=== PATIENT | female | born 1940 | race Caucasian/White ===

== ENCOUNTER → 2017-01-29 | Outpatient (CLI) | payer MEDICARE ==
[2017-01-29 11:40] LABS: Basophils # (A) 0.1 k/uL (0-0.2); Basophils % (A) 1 %; CH 32.4; CHCM 32.4; Eosinophils # (A) 0.2 k/uL (0-0.7); Eosinophils % (A) 3 %; HDW 2.48; HGB 15.2 gm/dL (11.4-16.0); Luc # (Auto) 0.16; Luc % (Auto) 3; Lymphocytes # (A) 2.2 k/uL (1.0-4.8); Lymphocytes % (A) 37 %; MCH 32.5 pg (25.0-35.0); MCHC 32.3 g/dL (31.0-37.0); MCV 100.5 fL (80.0-100.0); Macrocytosis Slight; Mean Platelet Volume 8.9; Monocytes # (A) 0.4 k/uL (0-1.0); Monocytes % (A) 7 %; Neutrophils % (A) 49 %; RBC 4.68 m/uL (3.80-5.40); RDW 14.6 % (11.5-15.5); WBC (Perox) 5.78
[2017-01-29 11:53] LABS: ALT 30 U/L (9-52); AST 25 U/L (14-36); Alkaline Phosphatase 68 U/L (38-126); Anion Gap 10 mmol/L; Blood Urea Nitrogen 22 mg/dL (7-17); Calcium 9.9 mg/dL (8.4-10.2); Carbon Dioxide 29 mmol/L (22-30); Chloride 102 mmol/L (98-107); Glucose 92 mg/dL (74-99); Non-African American GFR(MDRD) >60 (>60 ml/min/1.73 sqM); Sodium 141 mmol/L (137-145); Total Bilirubin 0.5 mg/dL (0.2-1.3); Total Protein 7.5 g/dL (6.3-8.2)
== END | disposition home or self-care (01) ==
LOC: LABWHC1 11:06
PROVIDERS: ATTEND Internal Medicine Geriatric Medicine
DX: I48.2 Chronic atrial fibrillation (principal); E05.80 Other thyrotoxicosis without thyrotoxic crisis or storm
CPT/HCPCS: 36415; 80053; 84439; 84443; 85025

== ENCOUNTER → 2017-08-28 | Day surgery (SDC) | payer MEDICARE ==
[2017-08-22 11:55] VITALS: BMI 25.6
[~2017-08-28] MED LIST: BALANCED SALT IRRIG SOLN COMB2 15 ML IRRIG.SOLN IRRIGATION ONE; CYCLOPENTOLATE 1% OPHTH SOLN 2 ML BTL OP ONE; EPINEPHrine (PF) 0.3 ML in BALANCED SALT IRRIG SOLN COMB2 500 ML IRRIGATION ONE; HYALURONATE SODIUM INTRAOCULAR 1 EACH SYRINGE (12MG/ML) INTRAOCULA ONE; LACTATED RINGERS 1,000 ML IV ONE; LACTATED RINGERS 1,000 ML IV SCH; LIDOCAINE 1% (PF) 10MG/ML VIAL MISCELLANE ONE; MIDAZOLAM 2 MG/2 ML VIAL ONE; MOXIFLOXACIN HCL 0.5% DROPS 3 ML BTL OP ONE; PHENYLEPHRINE 2.5% OPHTH DRP 2ML OP NR; TETRACAINE 0.5% OPHTH (PF) DROPS 4 ML BTL OP ONE; TIMOLOL 0.5% OPHTH DROPS 5 ML BTL OP ONE; fentaNYL (PF) 50 MCG/ML 2 ML AMP ONE
--- NOTE | 2017-08-28 11:31 | P.OP ---
Date of Procedure: 08/28/17 Preoperative Diagnosis: NS & PSC Postoperative Diagnosis: same Procedure(s) Performed: PIOL, OS Implants: PCB00 17.50 Anesthesia: MAC Surgeon: Hunter Maciel Estimated Blood Loss (ml): 0 Pathology: none sent Condition: stable Disposition: same day Indications for Procedure: blurry vision Operative Findings: No complications
[2017-08-28 11:47] VITALS: RESP 16
[2017-08-28 11:48] VITALS: BP 100/58; PULSE 63
--- NOTE | 2017-08-28 16:03 | OP ---
OPERATIVE REPORT DATE OF SERVICE: 08/28/17 THERAPY TECH:: PREOPERATIVE DIAGNOSIS:: Nuclear sclerosis. Posterior subcapsular cataract. POSTOPERATIVE DIAGNOSIS:: Nuclear sclerosis. Posterior subcapsular cataract. OPERATION:: Clear cornea phacoemulsification of cataract, left, OS eye. ESTIMATED BLOOD LOSS:: Zero. SPECIMEN TAKEN:: None. NARRATIVE:: After obtaining the appropriate consent, the patient was brought to the Operating Room where the patient was placed under cardiac monitoring and prepped and draped in the usual sterile manner. At the 5 o'clock position a 15 degree super sharp blade was used to create a paracentesis followed by instillation of 1% Xylocaine MPF 50:50 mix with BSS into the anterior chamber. This was followed by Amvisc to stabilize the anterior chamber. At the 3 o'clock position a self-sealing corneal flap incision was created using 2.8 mm jai keratome. A cystatome was used to initiate a continuous tear capsulorrhexis which was completed with the Utrata forceps. A Binkhorst cannula was used to hydrodissect the lens nucleus followed by hydrodelineation. Phacoemulsification of the lens was performed utilizing phacochop in 11.87 seconds at 10% power. The remaining cortical material was removed using the irrigation aspiration mode followed by additional 1% Xylocaine MPF into the anterior chamber followed by viscoelastic to stabilize the capsular bag. An WOOD PCB 00 17.5 diopter posterior chamber lens was placed into the capsular bag without difficulty. The remaining viscoelastic material was removed from the anterior chamber with the irrigation/aspiration. Balanced salt solution was used to normalize the intraocular pressure. The incision was checked for watertight integrity. The patient then received two drops of 0.5% timolol followed by two drops Vigamox, was lightly patched and shielded in the usual manner. There were no complications from the procedure. The patient tolerated the procedure well and was returned to recovery in good condition. MMODL / IJN: [id number] /
== END | disposition home or self-care (01) ==
LOC: OR 08:26
PROVIDERS: ATTEND Ophthalmology
DX: H25.12 Age-related nuclear cataract, left eye (principal); H25.042 Posterior subcapsular polar age-related cataract, left eye; H21.233 Degeneration of iris (pigmentary), bilateral; H40.003 Preglaucoma, unspecified, bilateral; H52.13 Myopia, bilateral; H52.4 Presbyopia; H00.026 Hordeolum internum left eye, unspecified eyelid; H00.023 Hordeolum internum right eye, unspecified eyelid; L65.9 Nonscarring hair loss, unspecified; I10 Essential (primary) hypertension; M81.0 Age-related osteoporosis without current pathological fracture; I48.91 Unspecified atrial fibrillation; I11.9 Hypertensive heart disease without heart failure; M19.90 Unspecified osteoarthritis, unspecified site; M54.9 Dorsalgia, unspecified; E07.9 Disorder of thyroid, unspecified; J30.2 Other seasonal allergic rhinitis; I25.10 Atherosclerotic heart disease of native coronary artery without angina pectoris; Z79.01 Long term (current) use of anticoagulants; Z79.891 Long term (current) use of opiate analgesic; Z79.899 Other long term (current) drug therapy; Z88.5 Allergy status to narcotic agent; Z88.8 Allergy status to other drugs, medicaments and biological substances
CPT/HCPCS: 66984; C1780; J2250; J0171; J3010; J2001

== ENCOUNTER → 2018-10-18 | Outpatient (CLI) | payer MEDICARE ==
--- NOTE | 2018-10-18 14:46 | MR ---
EXAMINATION TYPE: MR lumbar spine wo/w con DATE OF EXAM: 10/18/2018 COMPARISON: 01/08/2013 HISTORY: Back pain TECHNIQUE: Multiplanar, multisequence images of the lumbar spine were acquired utilizing 7 mL intravenous gadoli nium contrast. There is metal artifact from posterior fusion surgery from L4 to S1. Vertebra have normal alignment. There is no compression fracture. There is disc space narrowing throughout the lumbar spine. There is posterior disc herniation at L2-3 and L3-4 with endplate spur formation. There is developmentally la rge spinal canal and no significant spinal stenosis. There is mild thoracolumbar levoscoliosis. Contrast images show no pathologic enhancement. There are large sacral cysts noted at S2 and S3 level . There is no lumbar paraspinal mass. I see no focal bone destruction. IMPRESSION: Multilevel posterior fusion surgery. There is increased posterior disc herniation at L2-3 and L3-4 co mpared to old exam. No significant narrowing of the spinal canal. No fracture.
== END | disposition home or self-care (01) ==
LOC: RADMRIMAIN 09:09
PROVIDERS: ATTEND Internal Medicine Geriatric Medicine
DX: M51.26 Other intervertebral disc displacement, lumbar region (principal); Z98.1 Arthrodesis status
CPT/HCPCS: 72158; A9585

== ENCOUNTER 2018-10-22 10:19 | Emergency (ER) | payer MEDICARE ==
[2018-10-22 10:26] VITALS: TEMP 98.7
--- NOTE | 2018-10-22 11:05 | ED ---
General Adult HPI - General Chief complaint: Headache Stated complaint: Headache Time Seen by Provider: 10/22/18 10:28 Source: patient Mode of arrival: wheelchair Limitations: physical limitation - History of Present Illness Initial comments: Patient is a 78-year-old female with history of A. fib is presenting to the emergency Department with chief complaint of a headache. Patient reports the headache started yesterday morning near the right occipital region and has since progressed into a global headache. Patient reports the pain began yesterday morning after she woke up and it was gradual in onset. Patient reports the pain is an 8 and throbbing. Patient denies nausea, vomiting or for sensitivity. Patient does not have a history of headaches. Patient reports the headache is exacerbated with left and right rotation and flexion and extension. Patient reports of range of motion of the neck due to the pain. Patient denies one- sided weakness, poor seizures, blurry vision or gait instability. Patient reports a left hand tremor but states that is her baseline. Patient does take warfarin daily. Patient denies any trauma to the head. Patient denies taking any medication to alleviate the symptoms. - Related Data Home Medications Medication Instructions Recorded Confirmed Baclofen [Lioresal] 10 mg PO TID 08/22/17 10/22/18 Gabapentin [Neurontin] 300 mg PO BID 08/22/17 10/22/18 Lisinopril [Zestril] 10 mg PO DAILY 08/22/17 10/22/18 Methimazole [Tapazole] 5 mg PO DAILY 08/22/17 10/22/18 Oxybutynin Chloride [Ditropan] 5 mg PO DAILY 08/22/17 10/22/18 Warfarin [Coumadin] 2.5 mg PO SUTUWETHFRSA 08/22/17 10/22/18 hydrOXYzine HCL [Atarax] 25 mg PO BID PRN 08/22/17 10/22/18 Atorvastatin [Lipitor] 20 mg PO DAILY 10/22/18 10/22/18 Buprenorphine [Butrans 5 MCG/HR] 1 patch TRANSDERM WE 10/22/18 10/22/18 Calcium Carbonate/Vitamin D3 1 tab PO DAILY 10/22/18 10/22/18 [Calcium 500-Vit D3 200 Tablet] DULoxetine HCL [Cymbalta] 60 mg PO DAILY 10/22/18 10/22/18 Glucosam/Mat-Msm1/C/Nicko/Bosw 1 tab PO BID 10/22/18 10/22/18 [Glucosamine-Chondroitin Tablet] Metoprolol Tartrate [Lopressor] 25 mg PO TID 10/22/18 10/22/18 Warfarin [Coumadin] 3.75 mg PO MO 10/22/18 10/22/18 metroNIDAZOLE [Flagyl] 500 mg PO Q8H 10/22/18 10/22/18 traMADol HCL [Ultram] 100 mg PO BID PRN 10/22/18 10/22/18 Allergies Allergy/AdvReac Type Severity Reaction Status Date / Time No Known Allergies Allergy Verified 10/22/18 11:03 Review of Systems ROS Statement: Those systems with pertinent positive or pertinent negative responses have been documented in the HPI. ROS Other: All systems not noted in ROS Statement are negative. Past Medical History Past Medical History: Atrial Fibrillation, GI Bleed, Hypertension, Osteoarthritis (OA) Additional Past Medical History / Comment(s): VARICOSE VEINS, BACK PAIN -USES CANE PRN., HX OF GI BLEED FROM COLITIS (HOSPITALIZED IN [place] 02/2017)., HX OF FX RIGHT ANKLE AND LEFT FOOT., LEFT CATARACT. History of Any Multi-Drug Resistant Organisms: None Reported Past Surgical History: Back Surgery, Orthopedic Surgery Additional Past Surgical History / Comment(s): RIGHT ANKLE SURGERY (HARDWARE REMOVED), RIGHT CATARACT Past Anesthesia/Blood Transfusion Reactions: No Reported Reaction Past Psychological History: No Psychological Hx Reported Smoking Status: Former smoker Past Alcohol Use History: Occasional Past Drug Use History: None Reported - Past Family History Mother Family Medical History: Cancer Additional Family Medical History / Comment(s): COLON CANCER Sister(s) Family Medical History: Cancer Additional Family Medical History / Comment(s): BREAST CANCER General Exam Limitations: no limitations General appearance: alert, in no apparent distress Head exam: Present: atraumatic, normocephalic, normal inspection Eye exam: Present: normal appearance, PERRL, EOMI. Absent: conjunctival injection, periorbital tenderness Pupils: Present: normal accommodation ENT exam: Present: normal exam, normal oropharynx, mucous membranes moist, TM's normal bilaterally, normal external ear exam Neck exam: Present: normal inspection, tenderness (Right-sided neck tenderness). Absent: full ROM (Limited range of motion due to pain) Respiratory exam: Present: normal lung sounds bilaterally. Absent: respiratory distress, wheezes Cardiovascular Exam: Present: regular rate, normal rhythm, normal heart sounds GI/Abdominal exam: Present: soft, normal bowel sounds. Absent: tenderness, guarding, rebound Extremities exam: Present: normal inspection, full ROM, normal capillary refill Back exam: Present: normal inspection, full ROM. Absent: CVA tenderness (R), CVA tenderness (L) Neurological exam: Present: alert, oriented X3, normal gait, other (Patient neurovascular intact). Absent: motor sensory deficit Psychiatric exam: Present: normal affect, normal mood Skin exam: Present: warm, intact, normal color Course Vital Signs 10/22/18 10/22/18 10:23 13:02 Temperature 98.7 F Pulse Rate 75 Respiratory 18 18 Rate Blood Pressure 135/61 Blood Pressure 128/76 [Right Arm] O2 Sat by Pulse 96 Oximetry Medical Decision Making - Medical Decision Making Patient is a 70-year-old female presents emergency Department with a chief complaint of a headache. Patient is neurovascularly intact. has no blurry vision, one-sided weakness or paresthesias. INR is at therapeutic range of 2.3. Patient is on Coumadin. CT of brain and C-spine is negative for acute fractures, disengages, hemorrhage, space at about lesions or midline shift. Patient also appears to have pain with palpation along the neck that appears to be exacerbated with specific positions. The some suspecting the patient to have a musculoskeletal pain. Negative meningismus or fever. Patient is already on multiple narcotic medications due to previous back surgeries. Patient sees a pain physician. The daughter spoke with the patient's pain management physician who will see the patient tomorrow morning. Patient given morphine, Benadryl, Reglan and lorazepam. Daughter and patient advised to follow-up with pain physician. Strict return parameters were thoroughly discussed patient was understanding and agreeable. Case discussed physician. - Lab Data Result diagrams: 10/22/18 11:26 10/22/18 11:26 Lab Results 10/22/18 10/22/18 10/22/18 Range/Units 11:26 11:26 11:26 WBC 9.4 (3.8-10.6) k/uL RBC 4.24 (3.80-5.40) m/uL Hgb 13.7 (11.4-16.0) gm/dL Hct 40.3 (34.0-46.0) % MCV 95.0 (80.0-100.0) fL MCH 32.2 (25.0-35.0) pg MCHC 33.9 (31.0-37.0) g/dL RDW 15.4 (11.5-15.5) % Plt Count 179 (150-450) k/uL Neutrophils % 73 % Lymphocytes % 15 % Monocytes % 6 % Eosinophils % 5 % Basophils % 1 % Neutrophils # 6.9 (1.3-7.7) k/uL Lymphocytes # 1.4 (1.0-4.8) k/uL Monocytes # 0.5 (0-1.0) k/uL Eosinophils # 0.5 (0-0.7) k/uL Basophils # 0.0 (0-0.2) k/uL PT 21.9 H (9.0-12.0) sec INR 2.3 H (<1.2) APTT 35.1 H (22.0-30.0) sec Sodium 139 (137-145) mmol/L Potassium 3.9 (3.5-5.1) mmol/L Chloride 99 (98-107) mmol/L Carbon Dioxide 32 H (22-30) mmol/L Anion Gap 8 mmol/L BUN 20 H (7-17) mg/dL Creatinine 0.83 (0.52-1.04) mg/dL Est GFR (CKD-EPI)AfAm 79 (>60 ml/min/1.73 sqM) Est GFR (CKD-EPI)NonAf 68 (>60 ml/min/1.73 sqM) Glucose 86 (74-99) mg/dL Calcium 9.0 (8.4-10.2) mg/dL Total Bilirubin 0.8 (0.2-1.3) mg/dL AST 21 (14-36) U/L ALT 20 (9-52) U/L Alkaline Phosphatase 87 (38-126) U/L Total Protein 7.2 (6.3-8.2) g/dL Albumin 4.1 (3.5-5.0) g/dL Disposition Clinical Impression: Headache Disposition: HOME SELF-CARE Condition: Stable Instructions (If sedation given, give patient instructions): Acute Headache (ED) Additional Instructions: Please follow up with a pain physician. Return to emergency department if symptoms worsen. Is patient prescribed a controlled substance at d/c from ED?: No Referrals: Horacio Miller MD [Primary Care Provider] - 1-2 days Time of Disposition: 13:43
[2018-10-22] MEDS ORDERED: MORPHINE SULFATE 4 MG/ML SYRINGE IVP STA (11:33)
[2018-10-22 11:36] LABS: Basophils % (A) 1 %; Eosinophils # (A) 0.5 k/uL (0-0.7); Eosinophils % (A) 5 %; HCT 40.3 % (34.0-46.0); HGB 13.7 gm/dL (11.4-16.0); Lymphocytes # (A) 1.4 k/uL (1.0-4.8); Lymphocytes % (A) 15 %; MCH 32.2 pg (25.0-35.0); MCHC 33.9 g/dL (31.0-37.0); Mean Platelet Volume 8.3; Monocytes # (A) 0.5 k/uL (0-1.0); Monocytes % (A) 6 %; Neutrophils # (A) 6.9 k/uL (1.3-7.7); Neutrophils % (A) 73 %; Platelet Count 179 k/uL (150-450); RBC 4.24 m/uL (3.80-5.40); RDW 15.4 % (11.5-15.5); WBC 9.4 k/uL (3.8-10.6)
[2018-10-22 11:44] LABS: INR 2.3 (<1.2); Partial Thromboplastin Time 35.1 sec (22.0-30.0); Prothrombin Time 21.9 sec (9.0-12.0)
[2018-10-22 11:45] LABS: Albumin 4.1 g/dL (3.5-5.0); Potassium 3.9 mmol/L (3.5-5.1); Total Bilirubin 0.8 mg/dL (0.2-1.3); Total Protein 7.2 g/dL (6.3-8.2)
--- NOTE | 2018-10-22 12:05 | CT ---
EXAMINATION TYPE: CT brain shala cedeno DATE OF EXAM: 10/22/2018 COMPARISON: 03/31/2010 HISTORY: head and neck pain x2 days CT DLP: 1111.[address] of the brain was performed. The ventricles, basal cisterns and sulci overlying the cerebral convexities demonstrate mild enlargem ent. There is no evidence for intracranial hemorrhage or sulcal effacement. There is decreased attenuatio n about the periventricular white matter and deep white matter of both cerebral hemispheres, compatib le with chronic small vessel ischemia. No mass effects are seen. If symptoms persist consider MRI. Osseous calvarium is intact. IMPRESSION: 1. Age related atrophic and chronic small vessel ischemic change without acute intracranial process seen at this time. CT Cervical Spine: Unenhanced CT of the cervical spine was performed with bone and soft tissue window settings submitted . Coronal and sagittal reconstruction is obtained. There is normal alignment and prevertebral soft tissues. No evidence for acute cervical fracture . Scattered degenerative disc disease and spondylosis. Biapical scarring. IMPRESSION: 1. No evidence for acute fracture or subluxation of the cervical spine.
[2018-10-22] MEDS ORDERED: METOCLOPRAMIDE 5 MG/ML 2 ML VIAL IVP STA (12:39)
[2018-10-22] MEDS ORDERED: diphenhydrAMINE 50 MG/ML 1 ML VIAL IVP STA (12:39)
[2018-10-22] MEDS ORDERED: LORazepam 2 MG/ML INJ IV STA (13:42)
[2018-10-22 14:04] VITALS: BP 118/71; PULSE 68; RESP 16
== END 2018-10-22 14:09 | disposition home or self-care (01) ==
LOC: EC 10:19
DX: R51 Headache (principal); I48.91 Unspecified atrial fibrillation; I10 Essential (primary) hypertension; Z87.891 Personal history of nicotine dependence; Z98.890 Other specified postprocedural states; Z79.01 Long term (current) use of anticoagulants; Z79.891 Long term (current) use of opiate analgesic; Z79.899 Other long term (current) drug therapy
CPT/HCPCS: 36415; 80053; 85025; 85610; 85730; 72125; 70450; 99284; 96374; 96375 ×3; J2060; J2270; J1200; J2765

== ENCOUNTER 2018-10-25 07:21 | Emergency (ER) | payer MEDICARE ==
[2018-10-25 07:26] VITALS: TEMP 97.9
[2018-10-25] MEDS ORDERED: DIAZEPAM 5 MG/ML 2 ML INJ IVP STA (07:49)
[2018-10-25] MEDS ORDERED: KETOROLAC 60 MG/2 ML VIAL IVP STA (07:49)
--- NOTE | 2018-10-25 07:53 | ED ---
General Adult HPI - General Chief complaint: Headache Stated complaint: headache recheck Time Seen by Provider: 10/25/18 07:25 Source: patient, RN notes reviewed Mode of arrival: wheelchair Limitations: no limitations - History of Present Illness Initial comments: This is a 78-year-old female who presents emergency Department with a past medical history significant for migraine headaches. Patient states she started having headache on Saturday morning it started in her neck on the right side and has progressed to both sides of her neck and down radiates up into her head. Patient states she came to the ER 2 nights ago[address] It is [address] of her head and neck did not find anything and her doctor prescribed her some pain medications which has decreased the headache but the headache has not gone. Patient states the pain increases anytime she looks up and down or to the right or left. Patient denies any numbness or weakness. Patient denies any fever chills. Patient denies any slurred speech or visual disturbance. Patient states the greatest amount of pain is in her neck particularly trapezius muscles and sternocleidomastoid muscle. Patient denies any injury. Patient denies any palpitations or chest pain. Patient denies any shortness of breath. Patient denies any abdominal pain patient denies nausea vomiting diarrhea. - Related Data Home Medications Medication Instructions Recorded Confirmed Baclofen [Lioresal] 10 mg PO TID 08/22/17 10/25/18 Gabapentin [Neurontin] 300 mg PO BID 08/22/17 10/25/18 Lisinopril [Zestril] 10 mg PO DAILY 08/22/17 10/25/18 Methimazole [Tapazole] 5 mg PO DAILY 08/22/17 10/25/18 Oxybutynin Chloride [Ditropan] 5 mg PO DAILY 08/22/17 10/25/18 Warfarin [Coumadin] 2.5 mg PO SUTUWETHFRSA 08/22/17 10/25/18 hydrOXYzine HCL [Atarax] 25 mg PO BID PRN 08/22/17 10/25/18 Atorvastatin [Lipitor] 20 mg PO DAILY 10/22/18 10/25/18 Buprenorphine [Butrans 5 MCG/HR] 1 patch TRANSDERM WE 10/22/18 10/25/18 Calcium Carbonate/Vitamin D3 1 tab PO DAILY 10/22/18 10/25/18 [Calcium 500-Vit D3 200 Tablet] DULoxetine HCL [Cymbalta] 60 mg PO DAILY 10/22/18 10/25/18 Glucosam/Mat-Msm1/C/Nicko/Bosw 1 tab PO BID 10/22/18 10/25/18 [Glucosamine-Chondroitin Tablet] Metoprolol Tartrate [Lopressor] 25 mg PO TID 10/22/18 10/25/18 Warfarin [Coumadin] 3.75 mg PO MO 10/22/18 10/25/18 traMADol HCL [Ultram] 100 mg PO BID PRN 10/22/18 10/25/18 LORazepam [Ativan] 1 mg PO BID 10/25/18 10/25/18 oxyCODONE ER [OxyCONTIN] 20 mg PO Q12HR 10/25/18 10/25/18 Previous Rx's Medication Instructions Recorded Diazepam [Valium] 5 mg PO Q6H #10 tab 10/25/18 Allergies Allergy/AdvReac Type Severity Reaction Status Date / Time No Known Allergies Allergy Verified 10/25/18 08:02 Review of Systems ROS Statement: Those systems with pertinent positive or pertinent negative responses have been documented in the HPI. ROS Other: All systems not noted in ROS Statement are negative. Past Medical History Past Medical History: Atrial Fibrillation, GI Bleed, Hypertension, Osteoarthritis (OA) Additional Past Medical History / Comment(s): VARICOSE VEINS, BACK PAIN -USES CANE PRN., HX OF GI BLEED FROM COLITIS (HOSPITALIZED IN [place] 02/2017)., HX OF FX RIGHT ANKLE AND LEFT FOOT., LEFT CATARACT. History of Any Multi-Drug Resistant Organisms: None Reported Past Surgical History: Back Surgery, Orthopedic Surgery Additional Past Surgical History / Comment(s): RIGHT ANKLE SURGERY (HARDWARE REMOVED), RIGHT CATARACT Past Anesthesia/Blood Transfusion Reactions: No Reported Reaction Past Psychological History: No Psychological Hx Reported Smoking Status: Former smoker Past Alcohol Use History: Occasional Past Drug Use History: None Reported - Past Family History Mother Family Medical History: Cancer Additional Family Medical History / Comment(s): COLON CANCER Sister(s) Family Medical History: Cancer Additional Family Medical History / Comment(s): BREAST CANCER General Exam - General Exam Comments Initial Comments: GENERAL: Patient is well-developed and well-nourished. Patient is nontoxic and well- hydrated and is in mild distress. ENT: Neck is soft and supple. No significant lymphadenopathy is noted. Oropharynx is clear. Moist mucous membranes. Patient is not able to go through full range of motion of the neck secondary to pain. EYES: The sclera were anicteric and conjunctiva were pink and moist. Extraocular movements were intact and pupils were equal round and reactive to light. Eyelids were unremarkable. PULMONARY: Unlabored respirations. Good breath sounds bilaterally. No audible rales rhonchi or wheezing was noted. CARDIOVASCULAR: There is a regular rate and rhythm without any murmurs gallops or rubs. ABDOMEN: Soft and nontender with normal bowel sounds. SKIN: Skin is clear with no lesions or rashes and otherwise unremarkable. NEUROLOGIC: Patient is alert and oriented x3. Cranial nerves II through XII are grossly intact. Motor and sensory are also intact. Normal speech, volume and content. Symmetrical smile. MUSCULOSKELETAL: Normal extremities with adequate strength and full range of motion. Patient has tenderness in the trapezius muscles bilaterally. Patient has no tenderness on palpating the temporal region of scalp. LYMPHATICS: No significant lymphadenopathy is noted PSYCHIATRIC: Normal psychiatric evaluation. Limitations: no limitations Course Vital Signs 10/25/18 10/25/18 07:24 09:40 Temperature 97.9 F Pulse Rate 85 60 Respiratory 18 14 Rate Blood Pressure 133/80 103/67 O2 Sat by Pulse 96 96 Oximetry Medical Decision Making - Medical Decision Making Patient received Toradol and Valium and felt considerably better. Patient states she hasn't felt as good since it all began. Patient wants to be discharged home to follow-up with her primary medical care doctor. - Lab Data Result diagrams: 10/25/18 08:05 10/25/18 08:05 Lab Results 10/25/18 10/25/18 10/25/18 Range/Units 08:05 08:05 08:05 WBC 7.2 (3.8-10.6) k/uL RBC 4.27 (3.80-5.40) m/uL Hgb 13.4 (11.4-16.0) gm/dL Hct 41.2 (34.0-46.0) % MCV 96.3 (80.0-100.0) fL MCH 31.3 (25.0-35.0) pg MCHC 32.5 (31.0-37.0) g/dL RDW 13.7 (11.5-15.5) % Plt Count 199 (150-450) k/uL Neutrophils % 70 % Lymphocytes % 17 % Monocytes % 6 % Eosinophils % 6 % Basophils % 1 % Neutrophils # 5.0 (1.3-7.7) k/uL Lymphocytes # 1.2 (1.0-4.8) k/uL Monocytes # 0.4 (0-1.0) k/uL Eosinophils # 0.4 (0-0.7) k/uL Basophils # 0.1 (0-0.2) k/uL ESR 48 H (0-20) mm/hr Sodium 137 (137-145) mmol/L Potassium 3.9 (3.5-5.1) mmol/L Chloride 97 L (98-107) mmol/L Carbon Dioxide 30 (22-30) mmol/L Anion Gap 10 mmol/L BUN 19 H (7-17) mg/dL Creatinine 0.88 (0.52-1.04) mg/dL Est GFR (CKD-EPI)AfAm 73 (>60 ml/min/1.73 sqM) Est GFR (CKD-EPI)NonAf 64 (>60 ml/min/1.73 sqM) Glucose 99 (74-99) mg/dL Calcium 9.1 (8.4-10.2) mg/dL Magnesium 2.0 (1.6-2.3) mg/dL Total Bilirubin 0.7 (0.2-1.3) mg/dL AST 19 (14-36) U/L ALT 17 (9-52) U/L Alkaline Phosphatase 82 (38-126) U/L Creatine Kinase 44 (30-135) U/L Total Protein 7.2 (6.3-8.2) g/dL Albumin 4.0 (3.5-5.0) g/dL Disposition Clinical Impression: Cervical muscle strain Disposition: HOME SELF-CARE Condition: Good Prescriptions: Diazepam [Valium] 5 mg PO Q6H #10 tab Is patient prescribed a controlled substance at d/c from ED?: Yes When asked, does pt state using other controlled substances?: Yes If prescribed controlled substance>3 days was MAPS reviewed?: Prescribed <3 Days Referrals: Horacio Miller MD [Primary Care Provider] - 1-2 days Time of Disposition: 09:51
[2018-10-25 08:23] LABS: Basophils # (A) 0.1 k/uL (0-0.2); Basophils % (A) 1 %; Eosinophils # (A) 0.4 k/uL (0-0.7); Eosinophils % (A) 6 %; HCT 41.2 % (34.0-46.0); HGB 13.4 gm/dL (11.4-16.0); Lymphocytes # (A) 1.2 k/uL (1.0-4.8); Lymphocytes % (A) 17 %; MCH 31.3 pg (25.0-35.0); MCHC 32.5 g/dL (31.0-37.0); MCV 96.3 fL (80.0-100.0); Mean Platelet Volume 8.1; Monocytes # (A) 0.4 k/uL (0-1.0); Monocytes % (A) 6 %; Neutrophils % (A) 70 %; Platelet Count 199 k/uL (150-450); RBC 4.27 m/uL (3.80-5.40); RDW 13.7 % (11.5-15.5); WBC 7.2 k/uL (3.8-10.6)
[2018-10-25 08:42] LABS: Calcium 9.1 mg/dL (8.4-10.2); Potassium 3.9 mmol/L (3.5-5.1); Total Bilirubin 0.7 mg/dL (0.2-1.3); Total Protein 7.2 g/dL (6.3-8.2)
[2018-10-25 09:14] LABS: Erythrocyte Sedimentation Rate 48 mm/hr (0-20)
[2018-10-25 09:43] VITALS: RESP 14
[2018-10-25 10:03] VITALS: BP 113/53; PULSE 72
== END 2018-10-25 10:01 | disposition home or self-care (01) ==
LOC: EC 07:21
DX: S16.1XXA Strain of muscle, fascia and tendon at neck level, initial encounter (principal); R51 Headache; I48.91 Unspecified atrial fibrillation; I10 Essential (primary) hypertension; Z87.891 Personal history of nicotine dependence; Z79.01 Long term (current) use of anticoagulants; Z79.899 Other long term (current) drug therapy; Z87.39 Personal history of other diseases of the musculoskeletal system and connective tissue; Z86.69 Personal history of other diseases of the nervous system and sense organs; X58.XXXA Exposure to other specified factors, initial encounter
CPT/HCPCS: 36415; 80053; 85652; 82550; 83735; 85025; 99283; 96374; 96375; J3360; J1885

== ENCOUNTER 2020-10-11 06:22 | Day surgery (SDC) | payer MEDICARE ==
[~2020-10-11 06:22] MED LIST changes: +ALPRAZolam 0.25 MG TAB PO PRN; +ALPRAZolam 0.5 MG TAB PO PRN; +ASPIRIN 325 MG TAB PO STA; -BALANCED SALT IRRIG SOLN COMB2 15 ML IRRIG.SOLN IRRIGATION ONE; -CYCLOPENTOLATE 1% OPHTH SOLN 2 ML BTL OP ONE; -EPINEPHrine (PF) 0.3 ML in BALANCED SALT IRRIG SOLN COMB2 500 ML IRRIGATION ONE; +HEPARIN SODIUM,PORCINE 10,000 UNIT in SODIUM CHLORIDE 0.9% 1,000 ML IRRIGATION PRN; +HEPARIN SODIUM,PORCINE 2,500 UNIT in SODIUM CHLORIDE 0.9% 250 ML IRRIGATION PRN; -HYALURONATE SODIUM INTRAOCULAR 1 EACH SYRINGE (12MG/ML) INTRAOCULA ONE; -LACTATED RINGERS 1,000 ML IV ONE; -LACTATED RINGERS 1,000 ML IV SCH; -LIDOCAINE 1% (PF) 10MG/ML VIAL MISCELLANE ONE; -MIDAZOLAM 2 MG/2 ML VIAL ONE; -MOXIFLOXACIN HCL 0.5% DROPS 3 ML BTL OP ONE; +NITROGLYCERIN SL TABS 0.4 MG TAB SUBLINGUAL PRN; -PHENYLEPHRINE 2.5% OPHTH DRP 2ML OP NR; +SODIUM CHLORIDE 0.9% 1,000 ML in EMPTY BAG 1 BAG IV ONE; -TETRACAINE 0.5% OPHTH (PF) DROPS 4 ML BTL OP ONE; -TIMOLOL 0.5% OPHTH DROPS 5 ML BTL OP ONE; -fentaNYL (PF) 50 MCG/ML 2 ML AMP ONE
[2020-10-11] MEDS ORDERED: HEPARIN SODIUM 1,000 UN/ML (10ML VL) ONE (07:20)
[2020-10-11] MEDS ORDERED: VERAPAMIL 2.5 MG/ML 2 ML AMP ONE (07:20)
[2020-10-11] MEDS ORDERED: LIDOCAINE 1% INJ 10MG/ML (20 ML MDV) ONE (07:20)
[2020-10-11 07:21] LABS: Basophils # (A) 0.1 k/uL (0-0.2); Basophils % (A) 1 %; Eosinophils # (A) 0.4 k/uL (0-0.7); Eosinophils % (A) 6 %; HCT 41.1 % (34.0-46.0); HGB 13.3 gm/dL (11.4-16.0); Lymphocytes # (A) 1.8 k/uL (1.0-4.8); Lymphocytes % (A) 25 %; MCH 32.1 pg (25.0-35.0); MCHC 32.3 g/dL (31.0-37.0); MCV 99.3 fL (80.0-100.0); Monocytes # (A) 0.4 k/uL (0-1.0); Monocytes % (A) 6 %; Neutrophils # (A) 4.2 k/uL (1.3-7.7); Neutrophils % (A) 59 %; Platelet Count 229 k/uL (150-450); RBC 4.14 m/uL (3.80-5.40); RDW 13.5 % (11.5-15.5); WBC 7.1 k/uL (3.8-10.6)
[2020-10-11 07:26] VITALS: RESP 16
[2020-10-11 07:27] LABS: INR 1.2 (<1.2); Prothrombin Time 12.5 sec (9.0-12.0)
[2020-10-11 07:39] LABS: Calcium 9.4 mg/dL (8.4-10.2)
[2020-10-11 07:45] LABS: Potassium 5.1 mmol/L (3.5-5.1)
[2020-10-11] MEDS ORDERED: MIDAZOLAM 2 MG/2 ML VIAL IV ONE (08:02)
[2020-10-11] MEDS ORDERED: LIDOCAINE 1% INJ 10MG/ML (20 ML MDV) SQ ONE (08:05)
[2020-10-11] MEDS: VERAPAMIL SYRINGE (5 MG/10 ML) INTRAARTER ONE ×2 (08:07→08:33)
[2020-10-11] MEDS ORDERED: CLOPIDOGREL 75 MG TAB ONE (08:28)
[2020-10-11] MEDS ORDERED: niCARdipine 25 MG/10 ML VIAL ONE (08:30)
[2020-10-11] MEDS ORDERED: CLOPIDOGREL 75 MG TAB PO ONE (08:31)
[2020-10-11] MEDS ORDERED: IOPAMIDOL-370 125ML BTL INJ ONE (08:33)
[2020-10-11] MEDS ORDERED: NITROGLYCERIN 1000MCG/10ML SYRINGE INTRACORON ONE (08:34)
[2020-10-11] MEDS ORDERED: traMADol 50 MG TAB PO PRN (08:41)
[2020-10-11] MEDS ORDERED: hydrOXYzine HCL 25 MG TAB PO PRN (08:41)
[2020-10-11] MEDS ORDERED: ATROPINE SULFATE 0.1 MG/ML 10ML SYRINGE IV PRN (08:42)
[2020-10-11] MEDS ORDERED: ZOLPIDEM 5 MG TAB PO PRN (08:42)
[2020-10-11] MEDS ORDERED: NITROGLYCERIN SL TABS 0.4 MG TAB SUBLINGUAL PRN (08:42)
[2020-10-11] MEDS ORDERED: MAG HYDROX/AL HYDROX/SIMETH 30 ML CUP PO PRN (08:42)
[2020-10-11] MEDS ORDERED: RX INFO: IV CONTRAST WAS GIVEN 1 EACH MISC MISCELLANE PRN (08:42)
[2020-10-11] MEDS ORDERED: SODIUM CHLORIDE 0.9% 1,000 ML IV SCH (08:45)
[2020-10-11] MEDS ORDERED: NON FORMULARY DRUG (Glucosam/Chon-Msm1/C/Mang/Bosw [Glucosamine-Chondroitin Tablet] 1 EACH PO SCH (09:00)
--- NOTE | 2020-10-11 09:26 | LTR ---
DATE OF SERVICE: 10/11/[address] Miller: Ms. Tiffanie Lee was seen in the office today for further evaluation before noncardiac surgery. She was going to undergo a pelvic surgery. She underwent myocardial perfusion imaging stress test and that came into be abnormal with reversibility. Because of that, a heart catheterization was advised. The heart catheterization revealed severe single-vessel coronary artery disease involving the mid RCA, which I did perform successful stenting on it with an excellent angiographic results and without any complication. I want to thank you for allowing me to participate in her care and please do not hesitate to call if you have any questions or concerns. Sincerely, Raz Clark MD MMEDIL / ZBIGNIEWN: [id number] /
--- NOTE | 2020-10-11 09:26 | CC ---
CARDIAC CATHETERIZATION REPORT DATE OF SERVICE: 10/11/2020 PERFORMING PHYSICIAN: Raz Clark MD. PROCEDURE PERFORMED: 1. Selective right and left coronary angiogram. 2. Left heart catheterization. 3. Successful stenting of the mid RCA using 4.0 x 15 mm Xience drug-eluting stent with an excellent angiographic results and reduction of stenosis from 80% to 0%. INDICATION: Abnormal myocardial perfusion imaging stress test in this lady who is going to undergo pelvic surgery. APPROACH: Right radial artery. COMPLICATION: None. LEVEL OF SEDATION: Moderate with sedation length of 28 minutes. PROCEDURE DESCRIPTION: After obtaining informed consent, the patient was brought to the cardiac quality assurance qa lab analyst. The right radial artery was cannulated using micropuncture technique under ultrasound guidance, the micropuncture wire passed easily then I placed a 6-Swiss sheath at the right radial artery. After that, I gave the patient 2 mg of verapamil IA and 5000 units of heparin IV with continuous ACT monitoring throughout the procedure. After that, I did selective right and left coronary angiogram using JR4 and JL3.5 catheters. Left heart catheterization was performed using 5-Swiss pigtail catheter. The procedure was completed without any complication and after that I did intervene on the RCA. Please see a separate paragraph for that. SELECTIVE CORONARY ANGIOGRAM: 1. The RCA is a large caliber vessel. It is a dominant vessel. The mid RCA has a tight lesion appeared to be in the range of 80%. 2. The left main is short but angiographically normal. It bifurcates into LCX and LAD. 3. The left circumflex is a large caliber vessel. It is a nondominant vessel. The left circumflex has mild disease in the midportion. It gives rise into first obtuse marginal branch which appeared to be angiographically normal. 4. The LAD: The proximal LAD appeared to be angiographically normal. The mid LAD is normal and gives rise into a large diagonal branch which seems to be angiographically normal. There is questionable fistula was seen from that diag. The mid LAD and distal LAD appeared to be angiographically normal. HEMODYNAMICS: The LVEDP was about 10 to 12 mmHg without significant gradient across aortic valve. PCI OF THE RCA: Anticoagulation was achieved using heparin only with continuous ACT monitoring. Subsequently, I did engage the RCA using JR4 guiding catheter. I did wire the RCA using a run-through wire. After that, I did balloon angioplasty using 325 x 12 mm balloon before I deployed 4.0 x 15 mm Xience drug-eluting stent where the stent was positioned under fluoroscopy guidance and deployed under 14 atmospheres for 20 seconds with the following angiogram showing good angiographic results and the procedure was completed without any complication. CONCLUSION: 1. Severe single-vessel coronary artery disease involving the right coronary artery in the midportion. 2. Successful stenting of the mid RCA using 4.0 x 15 mm Xience drug-eluting stent with an excellent angiographic results. 3. Normal LVEDP. POSTPROCEDURE MANAGEMENT: 1. Dual anti-platelet therapy. 2. Aggressive cholesterol control. 3. Risk factor modifications. 4. Follow up with the patient. MMODL / IJN: [id number] /
[2020-10-11] MEDS ORDERED: BACLOFEN 10 MG TAB PO SCH (12:00)
[2020-10-11] MEDS ORDERED: GABAPENTIN 300 MG CAP PO SCH (12:15)
--- NOTE | 2020-10-11 13:25 | P.CONS ---
History of Present Illness - Reason for Consult Consult date: 10/11/20 Medical management - History of Present Illness HISTORY OF PRESENT ILLNESS This is an 80-year-old female patient of Dr. Miller with past medical history of paroxysmal atrial fibrillation, hypertension, hyperlipidemia, mitral regurgitation, chronic back pain status post multilevel fusion surgery, hy pothyroidism, overactive bladder. The patient scheduled for rectocele repair at [facility] on October 17. Prior to surgery, patient underwent stress testing that came back positive. She was then scheduled for heart catheterization today which found 80% stenosis of the RCA and subsequently underwent single vessel stent placement. Patient is seen today in the extended stay unit. She denies having any chest pain or shortness of breath. No lightheadedness or dizziness. No palpitations. REVIEW OF SYSTEMS Constitutional: No fever, no chills, no night sweats. No weight change. No weakness, fatigue or lethargy. No daytime sleepiness. EENT: No headache. No blurred vision or double vision, no loss of vision. No loss of Hearing, no ringing in the ears, no dizziness. No nasal drainage or congestion. No epistaxis. No sore throat. Lungs: No shortness of breath, cough, no sputum production. No wheezing. Cardiovascular: No chest pain, no lower extremity edema. No palpitations. No paroxysmal nocturnal dyspnea. No orthopnea. No lightheadedness or dizziness. No syncopal episodes. Abdominal: No abdominal pain. No nausea, vomiting. No diarrhea. No constipation. No bloody or tarry stools.. No loss of appetite. Genitourinary: No dysuria, increased frequency, urgency. No urinary retention. Musculoskeletal: No myalgias. No muscle weakness, no gait dysfunction, no frequent falls. No back pain. No neck pain. Integumentary: No wounds, no lesions. No rash or pruritus. No unusual bruising. No change in hair or nails. Neurologic: No aphasia. No facial droop. No change in mentation. No head injury. No headache. No paralysis. No paresthesia. Psychiatric: No depression. No anxiety. No mood swings. Endocrine: No abnormal blood sugars. No weight change. SOCIAL HISTORY Patient was a smoker of half pack per day for 40 years and quit about 10 years ago. She drinks alcohol socially. She denies any marijuana or illicit drug use. She lives at home with her . FAMILY HISTORY Father in his late 80s from old age. Mother from colon cancer. Patient has 3 sisters and one his past of unclear cause but had history of breast cancer. Other 2 sisters have no major medical problems. Patient has one brother age 92 with no major medical problems. Patient has one daughter with Marfan's syndrome. One son with no major medical problems. PHYSICAL EXAMINATION Gen: This is an 80-year-old female. Patient is resting on the stretcher and appears to be comfortable and in no acute distress. is at bedside. Patient is seen in the ESU. HEENT: Head is atraumatic, normocephalic. Pupils equal, round. Sclerae is anicteric. NECK: Supple. No JVD. No lymphadenopathy. No thyromegaly. LUNGS: Clear to auscultation. No wheezes or rhonchi. No intercostal retractions. HEART: Regular rate and rhythm. Systolic murmur. ABDOMEN: Soft. Bowel sounds are present. No masses. No tenderness. EXTREMITIES: No pedal edema. No calf tenderness. NEUROLOGICAL: Patient is awake, alert and oriented x3. Cranial nerves 2 through 12 are grossly intact. ASSESSMENT AND PLAN 1. Single-vessel coronary artery disease status post stent of the RCA. Continue aspirin 81 mg daily, Lipitor 20 mg daily, Plavix 75 mg daily 2. Paroxysmal atrial fibrillation. Continue Lopressor 25 mg 3 times daily. 3. Hypertension. Continue Lopressor, lisinopril 10 mg daily. 4. Hyperlipidemia. Continue atorvastatin 20 mg daily. 5. Chronic back pain with peripheral neuropathy. Continue baclofen 10 mg 3 times daily, gabapentin 300 mg twice daily, OxyContin 20 mg every 12 hours, tramadol 100 mg twice daily as needed. 6. Hyperthyroidism. Continue Tapazole 5 mg daily. 7. Overactive bladder. Continue oxybutynin 5 mg daily. 8. GI prophylaxis. Protonix 40 mg daily. 9. DVT prophylaxis. Heparin subcu. DISCHARGE PLAN Home on Saturday. Impression and plan of care have been directed as dictated by the signing physician. Jenny Moser nurse practitioner acting as scribe for signing physician. Past Medical History Past Medical History: Atrial Fibrillation, GI Bleed, Hypertension, Osteoarthritis (OA) Additional Past Medical History / Comment(s): VARICOSE VEINS, BACK PAIN -USES CANE PRN., HX OF GI BLEED FROM COLITIS (HOSPITALIZED IN [place] 02/2017)., HX OF FX RIGHT ANKLE AND LEFT FOOT, to have rectal/vaginal surgery @ [facility] 10/17/20. essential tremors (pt states hereditary) History of Any Multi-Drug Resistant Organisms: None Reported Past Surgical History: Back Surgery, Orthopedic Surgery Additional Past Surgical History / Comment(s): RIGHT ANKLE SURGERY (HARDWARE REMOVED), SANDY CATARACT Past Anesthesia/Blood Transfusion Reactions: No Reported Reaction Smoking Status: Former smoker - Past Family History Mother Family Medical History: Cancer Additional Family Medical History / Comment(s): COLON CANCER Sister(s) Family Medical History: Cancer Additional Family Medical History / Comment(s): BREAST CANCER Medications and Allergies Home Medications Medication Instructions Recorded Confirmed Type Baclofen [Lioresal] 10 mg PO TID 08/22/17 10/07/20 History Gabapentin [Neurontin] 300 mg PO BID 08/22/17 10/07/20 History Oxybutynin Chloride [Ditropan] 5 mg PO DAILY 08/22/17 10/07/20 History hydrOXYzine HCL [Atarax] 25 mg PO BID PRN 08/22/17 10/07/20 History lisinopriL [Zestril] 10 mg PO DAILY 08/22/17 10/07/20 History methIMAzole [Tapazole] 5 mg PO DAILY 08/22/17 10/07/20 History Atorvastatin [Lipitor] 20 mg PO DAILY 10/22/18 10/07/20 History Buprenorphine [Butrans 5 MCG/HR] 1 patch TRANSDERM WE PRN 10/22/18 10/07/20 History Calcium Carbonate/Vitamin D3 1 tab PO DAILY 10/22/18 10/07/20 History [Calcium 500-Vit D3 200 Tablet] DULoxetine HCL [Cymbalta] 60 mg PO DAILY 10/22/18 10/07/20 History Glucosam/Mat-Msm1/C/Nicko/Bosw 1 tab PO BID 10/22/18 10/07/20 History [Glucosamine-Chondroitin Tablet] Metoprolol Tartrate [Lopressor] 25 mg PO TID 10/22/18 10/07/20 History Warfarin [Coumadin] 3.75 mg PO SUTUWETHSA 10/22/18 10/07/20 History traMADol HCL [Ultram] 100 mg PO BID PRN 10/22/18 10/07/20 History LORazepam [Ativan] 1 mg PO BID 10/25/18 10/07/20 History oxyCODONE ER [OxyCONTIN] 20 mg PO Q12HR 10/25/18 10/07/20 History Warfarin Sodium 1.87 mg PO MOFR 10/07/20 10/07/20 History Allergies Allergy/AdvReac Type Severity Reaction Status Date / Time No Known Allergies Allergy Verified 10/07/20 10:09 Physical Exam Vitals: Vital Signs Temp Pulse Resp BP BP Pulse Ox 10/11/20 06:55 98.7 F 85 16 139/72 141/69 93 L Intake and Output 10/10/20 10/11/20 10/11/20 22:59 06:59 14:59 Intake Total 300 Balance 300 Intake: IV 300 Other: Weight 66.1 kg Results CBC & Chem 7: 10/11/20 07:10 10/11/20 07:10 Labs: Abnormal Lab Results - Last 24 Hours (Table) 10/11/20 10/11/20 Range/Units 07:10 07:10 PT 12.5 H (9.0-12.0) sec INR 1.2 H (<1.2) BUN 36 H (7-17) mg/dL
[2020-10-11] MEDS: DULoxetine HCL 60 MG CAPSULE.DR PO SCH (13:32)
[2020-10-11] MEDS: ATORVASTATIN 20 MG TAB PO SCH (13:32)
[2020-10-11] MEDS: CALCIUM CARB-VIT D 500 MG-5 MCG TAB PO SCH (13:32)
[2020-10-11] MEDS: methIMAzole 5 MG TAB PO SCH (13:33)
[2020-10-11] MEDS: lisinopriL 10 MG TAB PO SCH (13:33)
[2020-10-11] MEDS: OXYBUTYNIN CHLORIDE 5 MG TAB PO SCH (13:33)
[2020-10-11 15:02] VITALS: BMI 26.6
[2020-10-11] MEDS: METOPROLOL TARTRATE 25 MG TAB PO SCH ×2 (16:24→20:56)
[2020-10-11] MEDS: BACLOFEN 10 MG TAB PO SCH ×2 (16:24→20:56)
[2020-10-11] MEDS: oxyCODONE ER 20 MG TAB.ER.12H PO SCH (20:54)
[2020-10-11] MEDS: LORazepam 1 MG TAB PO SCH (20:55)
[2020-10-11] MEDS: HEPARIN SODIUM,PORCINE/PF 5,000 UNIT/0.5 ML SYRINGE SQ SCH (20:56)
[2020-10-11] MEDS: GABAPENTIN 300 MG CAP PO SCH (20:56)
[2020-10-12 06:10] LABS: Basophils # (A) 0.1 k/uL (0-0.2); Basophils % (A) 1 %; Eosinophils # (A) 0.5 k/uL (0-0.7); Eosinophils % (A) 6 %; HCT 40.2 % (34.0-46.0); HGB 13.4 gm/dL (11.4-16.0); Lymphocytes # (A) 2.6 k/uL (1.0-4.8); Lymphocytes % (A) 36 %; MCH 33.6 pg (25.0-35.0); MCHC 33.3 g/dL (31.0-37.0); MCV 100.8 fL (80.0-100.0); Mean Platelet Volume 9.4; Monocytes # (A) 0.4 k/uL (0-1.0); Monocytes % (A) 6 %; Neutrophils # (A) 3.6 k/uL (1.3-7.7); Neutrophils % (A) 48 %; Platelet Count 197 k/uL (150-450); RBC 3.99 m/uL (3.80-5.40); RDW 13.3 % (11.5-15.5); WBC 7.3 k/uL (3.8-10.6)
[2020-10-12 06:27] LABS: African American GFR (CKD) 74 (>60 ml/min/1.73 sqM); Anion Gap 7 mmol/L; Blood Urea Nitrogen 21 mg/dL (7-17); Calcium 9.2 mg/dL (8.4-10.2); Carbon Dioxide 29 mmol/L (22-30); Chloride 104 mmol/L (98-107); Glucose 87 mg/dL (74-99); Non-African American GFR(CKD) 65 (>60 ml/min/1.73 sqM); Sodium 140 mmol/L (137-145)
[2020-10-12] MEDS ORDERED: PANTOPRAZOLE 40 MG TABLET PO SCH (07:30)
[2020-10-12 07:36] VITALS: BP 144/78; PULSE 61; TEMP 98
[2020-10-12] MEDS: LORazepam 1 MG TAB PO SCH (07:54)
[2020-10-12] MEDS: METOPROLOL TARTRATE 25 MG TAB PO SCH (07:54)
[2020-10-12] MEDS: ATORVASTATIN 20 MG TAB PO SCH (07:54)
[2020-10-12] MEDS: GABAPENTIN 300 MG CAP PO SCH (07:54)
[2020-10-12] MEDS: BACLOFEN 10 MG TAB PO SCH (07:54)
[2020-10-12] MEDS: methIMAzole 5 MG TAB PO SCH (07:55)
[2020-10-12] MEDS: OXYBUTYNIN CHLORIDE 5 MG TAB PO SCH (07:55)
[2020-10-12] MEDS: oxyCODONE ER 20 MG TAB.ER.12H PO SCH (07:55)
[2020-10-12] MEDS: CALCIUM CARB-VIT D 500 MG-5 MCG TAB PO SCH (07:55)
[2020-10-12] MEDS: DULoxetine HCL 60 MG CAPSULE.DR PO SCH (07:55)
[2020-10-12] MEDS: HEPARIN SODIUM,PORCINE/PF 5,000 UNIT/0.5 ML SYRINGE SQ SCH (07:56)
[2020-10-12] MEDS: lisinopriL 10 MG TAB PO SCH (07:56)
[2020-10-12] MEDS ORDERED: ASPIRIN 81 MG PO SCH (09:00)
[2020-10-12] MEDS ORDERED: BUPRENORPHINE TRANSDERM PRN (09:00)
[2020-10-12] MEDS ORDERED: CLOPIDOGREL 75 MG TAB PO SCH (09:00)
--- NOTE | 2020-10-12 14:34 | DS ---
DISCHARGE SUMMARY BRIEF HISTORY: This is an 80-year-old female patient who underwent yesterday a heart catheterization and successful stenting of the right coronary artery with an excellent angiographic results and without any complication from right radial approach. The patient was seen this morning. She is going to be discharged home on dual anti- platelet therapy and anticoagulation and I will follow up with the patient next week in the office. MMBATSHEVA / MALI: [id number] /
--- NOTE | 2020-10-12 15:40 | P.PN ---
Subjective Progress Note Date: 10/12/20 HISTORY OF PRESENT ILLNESS This is an 80-year-old female patient of Dr. Miller with past medical history of paroxysmal atrial fibrillation, hypertension, hyperlipidemia, mitral regur gitation, chronic back pain status post multilevel fusion surgery, hypothyroidism, overactive bladder. The patient scheduled for rectocele repair at [facility] on October 17. Prior to surgery, patient underwent stress testing that came back positive. She was then scheduled for heart richie terization today which found 80% stenosis of the RCA and subsequently underwent single vessel stent placement. Patient is seen today in the extended stay unit. She denies having any chest pain or shortness of breath. No lightheadedness or dizziness. No palpitations. 10/12: Patient is seen today on the observation unit. She denies having any chest pain or shortness of breath. She states she has walked in her room without any chest pain. No lightheadedness or dizziness. She has been afebri le, heart rate 61, blood pressure 144/78, pulse ox 94% on room air. WBC 7.3, hemoglobin 13.4 and platelet count 197. BUN 21 and creatinine 0.86. Patient has some bruising to the right wrist at insertion site for heart catheterization. Patient is scheduled for discharge home. Only new medication is Plavix. REVIEW OF SYSTEMS Constitutional: No fever, no chills, no night sweats. No weight change. No weakness, fatigue or lethargy. No daytime sleepiness. EENT: No headache. No blurred vision or double vision, no loss of vision. No loss of Hearing, no ringing in the ears, no dizziness. No nasal drainage or congestion. No epistaxis. No sore throat. Lungs: No shortness of breath, cough, no sputum production. No wheezing. Cardiovascular: No chest pain, no lower extremity edema. No palpitations. No paroxysmal nocturnal dyspnea. No orthopnea. No lightheadedness or dizziness. No syncopal episodes. Abdominal: No abdominal pain. No nausea, vomiting. No diarrhea. No constipation. No bloody or tarry stools.. No loss of appetite. Genitourinary: No dysuria, increased frequency, urgency. No urinary retention. Musculoskeletal: No myalgias. No muscle weakness, no gait dysfunction, no frequent falls. No back pain. No neck pain. Integumentary: No wounds, no lesions. No rash or pruritus. No unusual bruising. No change in hair or nails. Neurologic: No aphasia. No facial droop. No change in mentation. No head injury. No headache. No paralysis. No paresthesia. Psychiatric: No depression. No anxiety. No mood swings. Endocrine: No abnormal blood sugars. No weight change. PHYSICAL EXAMINATION Gen: This is an 80-year-old female. Patient is resting in chair and appears to be comfortable and in no acute distress. HEENT: Head is atraumatic, normocephalic. Pupils equal, round. Sclerae is anicteric. NECK: Supple. No JVD. No lymphadenopathy. No thyromegaly. LUNGS: Clear to auscultation. No wheezes or rhonchi. No intercostal retractions. HEART: Regular rate and rhythm. Systolic murmur. ABDOMEN: Soft. Bowel sounds are present. No masses. No tenderness. EXTREMITIES: No pedal edema. No calf tenderness. NEUROLOGICAL: Patient is awake, alert and oriented x3. Cranial nerves 2 through 12 are grossly intact. ASSESSMENT AND PLAN 1. Single-vessel coronary artery disease status post stent of the RCA. Continue aspirin 81 mg daily, Lipitor 20 mg daily, Plavix 75 mg daily 2. Paroxysmal atrial fibrillation. Continue Lopressor 25 mg 3 times daily. 3. Hypertension. Continue Lopressor, lisinopril 10 mg daily. 4. Hyperlipidemia. Continue atorvastatin 20 mg daily. 5. Chronic back pain with peripheral neuropathy. Continue baclofen 10 mg 3 times daily, gabapentin 300 mg twice daily, OxyContin 20 mg every 12 hours, tramadol 100 mg twice daily as needed. 6. Hyperthyroidism. Continue Tapazole 5 mg daily. 7. Overactive bladder. Continue oxybutynin 5 mg daily. 8. GI prophylaxis. Protonix 40 mg daily. 9. DVT prophylaxis. Heparin subcu. DISCHARGE PLAN Home Impression and plan of care have been directed as dictated by the signing physician. Jenny Moser nurse practitioner acting as scribe for signing physician. Objective - Vital Signs Vital signs: Vital Signs Temp 98.0 F 10/12/20 07:35 Pulse 61 10/12/20 07:35 Resp 16 10/12/20 07:35 BP 144/78 10/12/20 07:35 Pulse Ox 94 L 10/12/20 07:35 Intake & Output 10/11/20 10/12/20 10/12/20 18:59 06:59 18:59 Intake Total 300 Balance 300 Weight 66.1 kg Intake: IV 300 Other: Voiding Method Incontinent Incontinent # Voids 1 0 - Labs CBC & Chem 7: 10/12/20 05:01 10/12/20 05:01 Labs: Abnormal Lab Results - Last 24 Hours (Table) 10/12/20 10/12/20 Range/Units 05:01 05:01 MCV 100.8 H (80.0-100.0) fL BUN 21 H (7-17) mg/dL
== END 2020-10-12 11:10 | disposition home or self-care (01) ==
LOC: CATHCVL 06:22 → 6NMEDSUR 11:46 → CATHCVL 10-12 11:10
PROVIDERS: ATTEND Internal Medicine Interventional Cardiology
DX: I25.10 Atherosclerotic heart disease of native coronary artery without angina pectoris (principal)
CPT/HCPCS: 92928; 93452; 93458; 80048 ×2; 85025 ×2; 85610; C9600; C1887; C1894; C1725; C1769 ×2; C1874; J2250; J2001; J1644 ×3; Q9967

== ENCOUNTER → 2021-07-21 | Outpatient (CLI) | payer MEDICARE ==
--- NOTE | 2021-07-22 07:30 | PE ---
EXAMINATION TYPE: PET CT fusion skull to thigh DATE OF EXAM: 07/21/2021 COMPARISON: Outside chest CT May 26, 2021 HISTORY: Lung nodule, abnormal CT TECHNIQUE: Following the intravenous administration of 10.64 mCi of F-18 FDG, whole body images are performed from the skull base to the midthigh. Images are reviewed on the computer in the coronal, a xial, and sagittal planes. Reconstructed rotating images are created on independent workstation and reviewed on the computer. A localization and attenuation correction CT is performed in conjunction with the PET scan. Blood glucose level equals 91. SCAN: Initial Scan FINDINGS: SKULL BASE AND NECK: No areas of abnormal hypermetabolic uptake CHEST, MEDIASTINUM, AND HILAR REGION: Pcpa-dh-piybcvie underlying emphysematous change greatest in th e bilateral upper lungs is redemonstrated. Mild scattered areas of parenchymal scarring greatest in t he lung bases again seen. No areas of abnormal hypermetabolic uptake. No obvious spiculated 1.1 cm no dule. Resolved 1.1 cm nodule or nodular consolidation right lung base prior study axial image 43 on c urrent study ABDOMEN AND PELVIS: Normal excretion. No adrenal masses. No abnormal hypermetabolic uptake. OSSEOUS STRUCTURES: Postsurgical change to the lower lumbar spine into the upper sacrum. Focal mild u ptake left upper cervical level axial image 30 is thought to reflect product of facet arthropathy. No suspicious hypermetabolic uptake. OTHER CT: Moderate to severe calcified plaque bilateral carotid bulb level. Mild cardiomegaly with se elmo three-vessel coronary artery calcification. Prominent pulmonary arteries suggesting underlying p ulmonary hypertension. Small sized hiatal hernia. Cortical thinning in both kidneys. There is pelvic stimulator device. There are sigmoid colonic diver ticula. Occasional scattered tiny pelvic phleboliths. IMPRESSION: No suspicious hypermetabolic uptake to suggest malignancy. Resolved near 1.0 cm right michela g nodule or more likely nodular consolidation.
== END | disposition home or self-care (01) ==
LOC: RADXRMAIN 07:41
PROVIDERS: ATTEND Internal Medicine Critical Care Medicine
DX: R91.1 Solitary pulmonary nodule (principal)
CPT/HCPCS: 78815; A9552

== ENCOUNTER → 2021-11-30 | Outpatient (CLI) | payer MEDICARE ==
--- NOTE | 2021-11-30 12:34 | CT ---
EXAMINATION TYPE: CT sinus wo con DATE OF EXAM: 11/30/2021 COMPARISON: None HISTORY: Chronic sinusitis, worse on LT side CT DLP: 529.50 mGycm. Automated Exposure Control for Dose Reduction was Utilized. TECHNIQUE: CT scan of the sinuses is performed without contrast, axial images are obtained, coronal r eformatted images are also reviewed. FINDINGS: The paranasal sinuses including the frontal, ethmoid, sphenoid, and maxillary sinuses bila terally are well-aerated without abnormal opacification. Middle mucosal thickening involving the sphe noid sinus. Bilateral small to moderate vincent bullosa. The ostiomeatal complex is patent bilaterally on the coronal images. Visualized portion of mastoid air cells show no abnormal opacification. The globes are intact bilate rally. Generalized degenerative change intracranially noted IMPRESSION: 1. Minimal mucosal thickening involving the sphenoid sinus. Remaining sinuses have a normal appearanc e And the ostiomeatal complex is patent bilaterally.
== END | disposition home or self-care (01) ==
LOC: RADCTMAIN 11:59
PROVIDERS: ATTEND Otolaryngology
DX: J32.9 Chronic sinusitis, unspecified (principal)
CPT/HCPCS: 70486

== ENCOUNTER 2022-08-10 08:46 | Day surgery (SDC) | payer MEDICARE ==
[~2022-08-10 08:46] MED LIST changes: +ATORVASTATIN 80 MG TAB PO STA; -SODIUM CHLORIDE 0.9% 1,000 ML in EMPTY BAG 1 BAG IV ONE; +SODIUM CHLORIDE 0.9% 1,000 ML in EMPTY BAG 1 BAG IV SCH
[2022-08-10] MEDS ORDERED: SODIUM CHLORIDE 0.9% 1,000 ML IV ONE (09:01)
[2022-08-10 09:26] LABS: Basophils % (A) 0 %; Eosinophils # (A) 0.5 k/uL (0-0.7); Eosinophils % (A) 6 %; HCT 40.7 % (34.0-46.0); HGB 13.1 gm/dL (11.4-16.0); Lymphocytes # (A) 1.5 k/uL (1.0-4.8); Lymphocytes % (A) 19 %; MCH 31.3 pg (25.0-35.0); MCHC 32.1 g/dL (31.0-37.0); MCV 97.4 fL (80.0-100.0); Mean Platelet Volume 9.6; Monocytes # (A) 0.5 k/uL (0-1.0); Monocytes % (A) 6 %; Neutrophils # (A) 5.3 k/uL (1.3-7.7); Neutrophils % (A) 66 %; Platelet Count 203 k/uL (150-450); RBC 4.17 m/uL (3.80-5.40); RDW 14.4 % (11.5-15.5)
[2022-08-10 09:27] LABS: INR 1.3 (<1.2); Prothrombin Time 13.3 sec (9.0-12.0)
[2022-08-10] MEDS ORDERED: VERAPAMIL 2.5 MG/ML 2 ML AMP ONE (10:21)
[2022-08-10] MEDS ORDERED: HEPARIN SODIUM 1,000 UN/ML (10ML VL) ONE (10:42)
[2022-08-10] MEDS ORDERED: MIDAZOLAM 2 MG/2 ML VIAL IV ONE ×2 (10:53→10:55)
[2022-08-10] MEDS ORDERED: LIDOCAINE 1% INJ 10MG/ML (5 ML VIAL-PF) SQ ONE (10:56)
[2022-08-10] MEDS ORDERED: fentaNYL (PF) 50 MCG/ML 2 ML AMP ONE (10:58)
[2022-08-10] MEDS ORDERED: VERAPAMIL SYRINGE (5 MG/10 ML) INTRAARTER ONE (10:58)
[2022-08-10] MEDS ORDERED: HEPARIN SODIUM 1,000 UN/ML (10ML VL) IV ONE (11:00)
[2022-08-10] MEDS: fentaNYL (PF) 50 MCG/ML 2 ML AMP IV ONE ×2 (11:00→12:03)
[2022-08-10] MEDS ORDERED: IOPAMIDOL-370 100ML BTL INJ ONE ×2 (11:38→12:08)
[2022-08-10] MEDS ORDERED: CLOPIDOGREL 75 MG TAB ONE (11:47)
[2022-08-10] MEDS ORDERED: CLOPIDOGREL 75 MG TAB PO ONE (11:50)
[2022-08-10] MEDS ORDERED: NITROGLYCERIN 1000MCG/10ML SYRINGE INTRACORON ONE (11:57)
[2022-08-10] MEDS ORDERED: ALBUTEROL NEBULIZED 2.5 MG/3 ML INHALATION PRN (12:11)
[2022-08-10] MEDS ORDERED: MELOXICAM 7.5 MG TAB PO PRN (12:11)
[2022-08-10] MEDS ORDERED: traMADol 50 MG TAB PO PRN (12:11)
[2022-08-10] MEDS ORDERED: hydrOXYzine HCL 25 MG TAB PO PRN (12:11)
[2022-08-10] MEDS ORDERED: BUMETANIDE 1 MG TAB PO PRN (12:11)
[2022-08-10] MEDS ORDERED: MAG HYDROX/AL HYDROX/SIMETH 30 ML CUP PO PRN (12:14)
[2022-08-10] MEDS ORDERED: RX INFO: IV CONTRAST WAS GIVEN 1 EACH MISC MISCELLANE PRN (12:14)
[2022-08-10] MEDS ORDERED: ZOLPIDEM 5 MG TAB PO PRN (12:14)
[2022-08-10] MEDS ORDERED: ATROPINE SULFATE 0.1 MG/ML 10ML SYRINGE IV PRN (12:14)
[2022-08-10 14:24] VITALS: BMI 29.0
[2022-08-10] MEDS: PANTOPRAZOLE 40 MG TABLET PO SCH (16:50)
[2022-08-10] MEDS: BACLOFEN 10 MG TAB PO SCH ×2 (16:50→20:26)
[2022-08-10] MEDS: METOPROLOL TARTRATE 25 MG TAB PO SCH ×2 (16:50→20:26)
[2022-08-10] MEDS: SYMBICORT 160-4.5 MCG INHALER INHALATION SCH (19:39)
--- NOTE | 2022-08-10 19:54 | P.PCN ---
Date of Procedure: 08/10/22 Operative Findings: CARDIAC CATHETERIZATION AND PERCUTANEOUS CORONARY INTERVENTION PERFORMING PHYSICIAN: Raz Clark MD, VI PROCEDURE PERFORMED: 1. Selective right and left coronary angiogram 2. Left heart catheterization 3. Successful stenting of mid LAD using 2.75 x 15 mm Xience JOSE LUIS with an excellent angiographic results 4. Successful balloon angioplasty of the first diagonal branch of the LAD 5. Adjunctive use off intravascular ultrasound INDICATION: Chest discomfort and this 82-year-old female patient was underwent a stress test showed an anterior ischemia. She is known to have CAD was prior stenting of the RCA COMPLICATION: None APPROACH: Right radial artery LEVEL OF SEDATION: Moderate with the sedation time off 74 minutes PROCEDURE DESCRIPTION: After obtaining an informed consent the patient was brought to the cardiac manager labor delivery. The right radial artery was cannulated using micropuncture technique under ultrasound guidance, the micropuncture wire passed easily then I placed a 6- Turkish sheath the right radial artery. I gave the patient 2 mg of verapamil intra-arterial and 5000 use of heparin intravenous. Selective right and left coronary angiogram performed using JR4 and JL 3.5 catheters. After that I did intervene on the left anterior descending artery. The procedure was completed was no complication SELECTIVE CORONARY ANGIOGRAM: The right coronary artery: Large caliber vessel and a dominant vessel. The proximal RCA has intermediate lesion appears to be in the range of 50%. The mid RCA is a stented and the stent is patent. The RCA distally bifurcates into PDA and PLV branches and both appeared to be angiographically normal Left main: In is angiographically normal. Bifurcates into an LCx and LAD The left circumflex: Large caliber vessel nondominant vessel. The proximal LCx appeared to have mild disease only and gives rises into an OM1 which appeared to be angiographically normal. The LCx distally appears to have an intermediate lesion in the range of 60%. The left anterior descending artery: Large caliber vessel. The proximal LAD appeared to be calcified was mild disease only. It gives rises into a large diagonal branch which appeared to be normal. The LAD after that appears to have a critical lesion in the range of 99.9%. The LAD distally appears to have mild disease only. PCI OF THE LAD: Anticoagulation was initiated using heparin with continuous ACT monitoring. Subsequently I did engage the left main using a JL 3.5 guiding catheter. Attempting wiring the left anterior descending artery using a whisper wire was unsuccessful till I used super cross catheter at 120 and degree angle. Finally I was able to get the wire to the distal LAD. Attempting advancing 2.0 x 12 mm balloon was an successful. After that I was able to advance 1 mm balloon and I did balloon angioplasty of the LAD in the proximal to midportion. After that I was able to advance 2.0 mm balloon. Before that I wired the first diagonal branch using a run-through wire. I did balloon angioplasty of the LAD using 2.0 mm balloon and then I did intravascular ultrasound of the left anterior descending artery. At that showed a diameter around 2.75 mm. I decided to go ahead and use 2.75 x 15 mm stent. Attempting advancing the stent was unsuccessful. Attempting advancing guide liner was unsuccessful. At that point I pulled the redness through wire from the diagonal branch and I advanced the wire to the LAD. Was to wires in the LAD I was able to advance 2.75 x 15 mm stent. The stent was positioned under fluoroscopy guidance and deployed under 14 felicitas for 20 seconds. Postdilatation was performed using 3 mm noncompliant balloon. Final angiogram was performed and showed excellent angiographic results with GUERLINE-3 flow in both the LAD and the diet. The procedure was completed was no complication CONCLUSION: Intermediate disease involving the proximal RCA. Patent stent in the mid RCA Intermediate disease involving the distal left circumflex Critical disease involving the mid LAD. I did perform successful stenting of the mid LAD with successful balloon angioplasty of the first diagonal branch. POSTPROCEDURE MANAGEMENT: 1. Dual antiplatelet therapy using aspirin and Plavix for at lest 6 month 2. Aggressive cholesterol control 3. Follow-up with the patient
[2022-08-10] MEDS ORDERED: ATORVASTATIN 20 MG TAB PO SCH (21:00)
[2022-08-10] MEDS ORDERED: MONTELUKAST 10 MG TAB PO SCH (21:00)
[2022-08-10] MEDS ORDERED: NON FORMULARY DRUG (Glucosam/Chon-Msm1/C/Mang/Bosw [Glucosamine-Chondroitin Tablet] 1 EACH PO SCH (21:00)
[2022-08-10] MEDS ORDERED: WARFARIN 2.5 MG TAB PO ONE (22:00)
[2022-08-11] MEDS: PANTOPRAZOLE 40 MG TABLET PO SCH (05:54)
[2022-08-11 06:32] LABS: Basophils % (A) 0 %; Eosinophils # (A) 0.5 k/uL (0-0.7); Eosinophils % (A) 7 %; HCT 36.9 % (34.0-46.0); HGB 11.7 gm/dL (11.4-16.0); Lymphocytes # (A) 1.1 k/uL (1.0-4.8); Lymphocytes % (A) 16 %; MCH 31.2 pg (25.0-35.0); MCHC 31.6 g/dL (31.0-37.0); MCV 98.6 fL (80.0-100.0); Mean Platelet Volume 9.5; Monocytes # (A) 0.4 k/uL (0-1.0); Monocytes % (A) 6 %; Neutrophils # (A) 4.7 k/uL (1.3-7.7); Neutrophils % (A) 68 %; Platelet Count 164 k/uL (150-450); RBC 3.75 m/uL (3.80-5.40); RDW 14.5 % (11.5-15.5)
[2022-08-11 06:44] LABS: INR 1.1 (<1.2); Prothrombin Time 11.9 sec (9.0-12.0)
[2022-08-11 07:01] LABS: African American GFR (CKD) 67 (>60 ml/min/1.73 sqM); Anion Gap 5 mmol/L; Blood Urea Nitrogen 18 mg/dL (7-17); Calcium 8.1 mg/dL (8.4-10.2); Carbon Dioxide 29 mmol/L (22-30); Chloride 105 mmol/L (98-107); Glucose 91 mg/dL (74-99); Non-African American GFR(CKD) 58 (>60 ml/min/1.73 sqM); Potassium 4.4 mmol/L (3.5-5.1); Sodium 139 mmol/L (137-145)
[2022-08-11 07:54] VITALS: BP 159/76; PULSE 68; RESP 14; TEMP 98.1
[2022-08-11] MEDS: SYMBICORT 160-4.5 MCG INHALER INHALATION SCH (08:56)
[2022-08-11] MEDS ORDERED: NON FORMULARY DRUG (Biotin [Biotin] 5 MG Capsule) PO SCH (09:00)
[2022-08-11] MEDS ORDERED: GABAPENTIN 300 MG CAP PO SCH (09:00)
[2022-08-11] MEDS ORDERED: LOSARTAN 50 MG TAB PO SCH (09:00)
[2022-08-11] MEDS ORDERED: ASPIRIN 81 MG PO SCH (09:00)
[2022-08-11] MEDS ORDERED: CLOPIDOGREL 75 MG TAB PO SCH (09:00)
[2022-08-11] MEDS ORDERED: CALCIUM CARB-VIT D 500 MG-5 MCG TAB PO SCH (09:00)
[2022-08-11] MEDS ORDERED: methIMAzole 5 MG TAB PO SCH (09:00)
[2022-08-11] MEDS ORDERED: DULoxetine HCL 60 MG CAPSULE.DR PO SCH (09:00)
[2022-08-11] MEDS: BACLOFEN 10 MG TAB PO SCH (09:04)
[2022-08-11] MEDS: METOPROLOL TARTRATE 25 MG TAB PO SCH (09:04)
--- NOTE | 2022-08-11 09:24 | P.DS ---
Providers Attending physician: Raz Clark Consults: 08/10/22 12:15 Consult Physician Routine Consulting Provider: [facility] Consult Reason/Comments: Post Interventional patient Do you want consulting provider notified?: Already Contacted Primary care physician: [facility] Course: The patient is an 82-year-old female patient who underwent yesterday a heart catheterization and stenting of the mid left anterior descending artery as well as an angioplasty of the first diagonal branch of the LAD with a complex procedure involving a very calcified LAD. She was seen and evaluated this morning. She reports no pain in the chest patient she does have shortness of breath with exertion has been the same as before. She is not hypoxic on room air. The examination revealed regular rhythm with a clear breathing sounds bilaterally and no lower extremity edema. The patient is going to be discharged home on dual antiplatelet therapy with aspirin and Plavix. Also she will be on Coumadin. She is on Coumadin for atrial fibrillation. I will follow-up with the patient next week in the office Plan - Discharge Summary Discharge Rx Participant: No New Discharge Prescriptions: New Clopidogrel [Plavix] 75 mg PO DAILY #90 tablet Continue hydrOXYzine HCL [Atarax] 25 mg PO BID PRN PRN Reason: Itching Baclofen [Lioresal] 10 mg PO TID methIMAzole [Tapazole] 5 mg PO DAILY Gabapentin [Neurontin] 300 mg PO DAILY Warfarin [Coumadin] 2.5 mg PO SUTUWETHSA traMADol HCL [Ultram] 100 mg PO BID PRN PRN Reason: Pain Metoprolol Tartrate [Lopressor] 25 mg PO TID Glucosam/Mat-Msm1/C/Nicko/Bosw [Glucosamine-Chondroitin Tablet] 1 tab PO BID Calcium Carbonate/Vitamin D3 [Calcium 500-Vit D3 5 Mcg (200 Iu)] 2 tab PO DAILY DULoxetine HCL [Cymbalta] 60 mg PO DAILY Atorvastatin [Lipitor] 20 mg PO HS Albuterol Inhaler [Ventolin Hfa Inhaler] 2 puff INHALATION Q4-6H PRN PRN Reason: Cough Losartan [Cozaar] 50 mg PO DAILY Omeprazole 20 mg PO BID Budesonide-Formot 160-4.5 Mcg [Symbicort 160-4.5 Mcg Inhaler] 2 puff INHALATION BID Montelukast Sodium 10 mg PO HS Warfarin Sodium 0.5 mg PO MOFR Meloxicam 7.5 mg PO DIRECTED PRN PRN Reason: Pain Aspirin 81 mg PO DAILY Biotin 5 mg PO DAILY Bumetanide 1 mg PO DIRECTED PRN PRN Reason: Edema Discharge Medication List Baclofen [Lioresal] 10 mg PO TID 08/22/17 [History] Gabapentin [Neurontin] 300 mg PO DAILY 08/22/17 [History] hydrOXYzine HCL [Atarax] 25 mg PO BID PRN 08/22/17 [History] methIMAzole [Tapazole] 5 mg PO DAILY 08/22/17 [History] Atorvastatin [Lipitor] 20 mg PO HS 10/22/18 [History] Calcium Carbonate/Vitamin D3 [Calcium 500-Vit D3 5 Mcg (200 Iu)] 2 tab PO DAILY 10/22/18 [History] DULoxetine HCL [Cymbalta] 60 mg PO DAILY 10/22/18 [History] Glucosam/Mat-Msm1/C/Nicko/Bosw [Glucosamine-Chondroitin Tablet] 1 tab PO BID 10/22/18 [History] Metoprolol Tartrate [Lopressor] 25 mg PO TID 10/22/18 [History] Warfarin [Coumadin] 2.5 mg PO SUTUWETHSA 10/22/18 [History] traMADol HCL [Ultram] 100 mg PO BID PRN 10/22/18 [History] Warfarin Sodium 0.5 mg PO MOFR 10/07/20 [History] Albuterol Inhaler [Ventolin Hfa Inhaler] 2 puff INHALATION Q4-6H PRN 08/09/22 [History] Aspirin 81 mg PO DAILY 08/09/22 [History] Biotin 5 mg PO DAILY 08/09/22 [History] Budesonide-Formot 160-4.5 Mcg [Symbicort 160-4.5 Mcg Inhaler] 2 puff INHALATION BID 08/09/22 [History] Bumetanide 1 mg PO DIRECTED PRN 08/09/22 [History] Losartan [Cozaar] 50 mg PO DAILY 08/09/22 [History] Meloxicam 7.5 mg PO DIRECTED PRN 08/09/22 [History] Montelukast Sodium 10 mg PO HS 08/09/22 [History] Omeprazole 20 mg PO BID 08/09/22 [History] Clopidogrel [Plavix] 75 mg PO DAILY #90 tablet 08/11/22 [Rx] Follow up Appointment(s)/Referral(s): Raz Clark MD [STAFF PHYSICIAN] - 08/22/22 3:30 pm
[2022-08-11] MEDS ORDERED: WARFARIN 2.5 MG TAB PO SCH (22:00)
[2022-08-13] MEDS ORDERED: WARFARIN 0.5 MG TAB PO SCH (22:00)
== END 2022-08-11 11:36 | disposition home or self-care (01) ==
LOC: CATHCVL 08:46 → 6NMEDSUR 13:24 → CATHCVL 08-11 11:36
PROVIDERS: ATTEND Internal Medicine Interventional Cardiology
DX: I25.10 Atherosclerotic heart disease of native coronary artery without angina pectoris (principal); I10 Essential (primary) hypertension; E78.5 Hyperlipidemia, unspecified; Z82.49 Family history of ischemic heart disease and other diseases of the circulatory system; Z95.5 Presence of coronary angioplasty implant and graft; Z79.82 Long term (current) use of aspirin; Z79.899 Other long term (current) drug therapy
CPT/HCPCS: 94640 ×2; 92978; 93454; 92921; 80048; 85025 ×2; 85610 ×2; C9600; C1769 ×3; C1887 ×3; C1894; C1725 ×4; C1753; C1874; J2250; J2001; J3010; J1644; Q9967

== ENCOUNTER 2022-10-29 09:33 | Day surgery (SDC) | payer MEDICARE ==
[2022-10-23 11:54] VITALS: BMI 28.9
[~2022-10-29 09:33] MED LIST changes: +HEPARIN SODIUM,PORCINE (1 ML) 2,500 UNIT in SODIUM CHLORIDE 0.9% 250 ML IRRIGATION PRN; -HEPARIN SODIUM,PORCINE 2,500 UNIT in SODIUM CHLORIDE 0.9% 250 ML IRRIGATION PRN
[2022-10-29] MEDS ORDERED: SODIUM CHLORIDE 0.9% 1,000 ML IV ONE (09:49)
[2022-10-29] MEDS ORDERED: CLOPIDOGREL 75 MG TAB ONE (10:09)
[2022-10-29 10:14] VITALS: RESP 16; TEMP 98.2
[2022-10-29] MEDS ORDERED: HEPARIN SODIUM 1,000 UN/ML (10ML VL) ONE (10:27)
[2022-10-29 10:29] LABS: INR 1.2 (<1.2)
[2022-10-29] MEDS ORDERED: MIDAZOLAM 2 MG/2 ML VIAL IVP ONE (10:39)
[2022-10-29] MEDS ORDERED: LIDOCAINE 2% (PF) 20 MG/ML 5 ML VIAL SQ ONE (10:41)
[2022-10-29] MEDS ORDERED: VERAPAMIL SYRINGE (5 MG/10 ML) INTRAARTER ONE (10:42)
[2022-10-29] MEDS ORDERED: HEPARIN SODIUM 1,000 UN/ML (10ML VL) IV ONE (10:45)
[2022-10-29] MEDS ORDERED: IOPAMIDOL-370 100ML BTL INJ ONE (11:06)
[2022-10-29] MEDS ORDERED: RX INFO: IV CONTRAST WAS GIVEN 1 EACH MISC MISCELLANE PRN (11:11)
[2022-10-29] MEDS ORDERED: SODIUM CHLORIDE 0.9% 1,000 ML IV SCH (11:15)
--- NOTE | 2022-10-29 11:17 | P.PCN ---
Date of Procedure: 10/29/22 Operative Findings: CARDIAC CATHETERIZATION PERFORMING PHYSICIAN: Raz Clark MD, RPVI PROCEDURE PERFORMED: 1. Selective right and left coronary angiogram 2. Left heart catheterization 3. iFR of the RCA and LCx and LAD 4. Ultrasound-guided access of the right radial artery INDICATION: Chest discomfort and shortness of breath in this 82-year-old female patient with known CAD and prior stenting of the RCA and LAD COMPLICATION: None APPROACH: Right radial artery LEVEL OF SEDATION: Moderate with a sedation length of 27 minutes PROCEDURE DESCRIPTION: After obtaining an informed consent, the patient was brought to cardiac outside laborer. Local anesthesia was performed using lidocaine subcutaneously. The right radial artery was cannulated using Seldinger technique, the guidewire passed easily, following that we advanced a 5-[place] sheath dilator assembly, the wire and dilator were removed and sheath was flushed. Following that, 2 mg of verapamil along with 5000 unit heparin were given. Selective right and left coronary angiogram using a 6-[place] JR4 and JL 3.5 guiding catheter. After that we did perform an FFR after the wire was zeroed and equalized subsequently with a JR4 guiding catheter and JL 3.5 guiding catheter. The iFR of the RCA was 0.96 and LCx 0.97 and LAD 0.91 Following that we did left heart catheterization using 6-[place] pigtail catheter. The procedure was completed there was no complication. SELECTIVE CORONARY ANGIOGRAM: The right coronary artery: Large caliber vessel and a dominant vessel. The proximal RCA as intermediate lesion appeared to be in the range of 50%. FFR was performed and came in to be nonischemic. The mid RCA is a stented and the stent is patent. The RCA distally appeared to have mild disease only. Left main: The left main is angiographically normal. Bifurcates into an ulcer next and LAD The left circumflex: Large caliber vessel nondominant vessel. The LCx distally has intermediate lesion also we did perform an FFR and it and that came in to be nonischemic The left anterior descending artery: The proximal LAD has also intermediate lesion appeared to be in the range of 50%. We did perform an FFR of breath and that came in to be nonischemic. The mid LAD is a stented and the stent is patent. The LAD distally appears to have mild disease only. HEMODYNAMICS: The LVEDP was 18 mmHg was no significant gradient across aortic valve CONCLUSION: 1. Intermediate triple-vessel CAD. FFR was performed on the RCA and LCx and LAD and came in to be nonischemic 2. Patent stent in the right coronary artery and left anterior descending artery 3. Elevated left-sided filling pressure POSTPROCEDURE MANAGEMENT: Medical treatment
[2022-10-29 18:46] VITALS: PULSE 58
[2022-10-29 18:47] VITALS: BP 163/67
== END 2022-10-29 15:56 | disposition home or self-care (01) ==
LOC: CATHCVL 09:33
PROVIDERS: ATTEND Internal Medicine Interventional Cardiology
DX: I25.10 Atherosclerotic heart disease of native coronary artery without angina pectoris (principal); I65.23 Occlusion and stenosis of bilateral carotid arteries; I10 Essential (primary) hypertension; E78.5 Hyperlipidemia, unspecified; F17.210 Nicotine dependence, cigarettes, uncomplicated; I48.0 Paroxysmal atrial fibrillation; Z95.5 Presence of coronary angioplasty implant and graft; Z79.899 Other long term (current) drug therapy
CPT/HCPCS: 93458; 93799; 76937; 85610; J2250; J1644; Q9967; J2001

== ENCOUNTER → 2023-06-25 | Outpatient (CLI) | payer MEDICARE ==
[2023-06-25 16:31] LABS: INR 8.2 (<1.2)
== END | disposition home or self-care (01) ==
LOC: LABWHC1 15:31
PROVIDERS: ATTEND Internal Medicine Interventional Cardiology
DX: I48.0 Paroxysmal atrial fibrillation (principal)
CPT/HCPCS: 36415; 85610

== ENCOUNTER → 2024-01-24 | Outpatient (CLI) | payer MEDICARE ==
[2024-01-24 14:46] LABS: Prothrombin Time 112.9 sec (10.0-12.5)
[2024-01-24 14:52] LABS: INR >10.0 (<1.2)
== END | disposition home or self-care (01) ==
LOC: LABWHC1 13:41
PROVIDERS: ATTEND Nurse Practitioner Adult Health
DX: I48.0 Paroxysmal atrial fibrillation (principal)
CPT/HCPCS: 36415; 85610

== ENCOUNTER → 2024-02-05 | Outpatient (CLI) | payer MEDICARE ==
[2024-02-05 10:32] LABS: African American GFR (CKD) 65 (>60 ml/min/1.73 sqM); Blood Urea Nitrogen 22 mg/dL (7-17); Non-African American GFR(CKD) 56 (>60 ml/min/1.73 sqM)
--- NOTE | 2024-02-07 10:03 | CT ---
EXAMINATION TYPE: CT angio neck DATE OF EXAM: 02/05/2024 11:39 AM COMPARISON: None. 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 3-D reconstructed images are created on an independent workstation and reviewed. [facility] images are reviewed. NASCET criteria was used in interpretation of this exam? Contrast used:65ML mL of Isovue 370 with IV Contrast, (none if empty) Oral contrast used: (none if empty) CT DLP: 252.5 mGycm, Automated exposure control for dose reduction was used. FINDINGS: Carotid/Vascular Structures: There is common origin of the left common carotid artery and right subcl ysabel artery from the innominate. Vertebral arteries are codominant. There is a 74% stenosis at the origin of the right internal carotid artery. The flow lumen is nearly imperceptible. This may be higher grade due to measurement error. Angiography may be useful for more accurate estimate. 30% narrowing at the origin of the left internal carotid artery is noted. Bilateral internal carotid arteries have tortuous courses. Internal carotid arteries and vertebral arteries are patent to the skull base. Other: Emphysematous changes are in the upper lung ryan. IMPRESSION: 1. Significant flow-limiting stenosis measuring at least 74% at the right internal carotid artery [place]. Due to the poor visualization from calcification, this may be higher grade. 2. Calcified plaques within the left internal carotid artery origin without significant flow-limiting stenosis. Narrowing estimated at 30%. [facility], Workstation: [facility], 02/07/2024 10:00 AM
== END | disposition home or self-care (01) ==
LOC: RADCTMAIN 01-31 14:22
PROVIDERS: ATTEND Internal Medicine Interventional Cardiology
DX: I65.23 Occlusion and stenosis of bilateral carotid arteries (principal)
CPT/HCPCS: 82565; 84520; 70498; 36415; Q9967

== ENCOUNTER 2024-04-20 06:10 | Day surgery (SDC) | payer MEDICARE ==
[2024-04-20] MEDS: SODIUM CHLORIDE 0.9% 1,000 ML IV SCH (06:37)
[2024-04-20] MEDS: ASPIRIN 81 MG PO STA (06:39)
[2024-04-20 06:42] VITALS: TEMP 98.6
[2024-04-20] MEDS: IV FLUID CONTINUATION 1,000 ML IV ONE (06:42)
[2024-04-20] MEDS: LIDOCAINE 1% INJ 10MG/ML (20 ML MDV) SQ ONE (07:45)
[2024-04-20] MEDS: TICAGRELOR 90 MG TAB PO ONE (07:48)
[2024-04-20] MEDS: HEPARIN SODIUM 1,000 UN/ML (10ML VL) IVP ONE (07:56)
[2024-04-20] MEDS: IOPAMIDOL-370 100ML BTL INJ ONE ×2 (08:14)
[2024-04-20] MEDS: HEPARIN SODIUM,PORCINE 10,000 UNIT in SODIUM CHLORIDE 0.9% 1,000 ML IRRIGATION ONE (08:15)
[2024-04-20] MEDS: HEPARIN SODIUM,PORCINE (1 ML) 2,500 UNIT in SODIUM CHLORIDE 0.9% 250 ML IRRIGATION ONE (08:15)
[2024-04-20] MEDS ORDERED: NALOXONE 0.4 MG/ML 1 ML VIAL IVP PRN (08:17)
--- NOTE | 2024-04-20 08:24 | P.PCN ---
Date of Procedure: 04/20/24 Operative Findings: An aortic arch and carotid angiogram Performing physician Raz Clark MD Procedure performed 1. An aortic arch angiogram 2. Bilateral carotid angiogram 3. Selective right common femoral artery angiogram and ultrasound-guided access of the right common femoral artery Indication Asymptomatic 83-year-old female patient who documented to have severe carotid atherosclerosis bilaterally on his CT scan was performed recently Approach The right common femoral artery but Level of sedation The procedure was performed with no sedation with the procedure length of 30 minutes Procedure description next after clinic and informed consent the patient was brought to the cardiac [employer]. The right common femoral artery was cannulated using micropuncture technique under ultrasound guidance a micropuncture wire passed easily then I placed a 6 [place] 90 cm shuttle sheath at the right common femoral artery over a 035 stiff wire. Subsequently we did an aortic arch angiogram using 6 [place] pigtail catheter using digital subtraction before I did selective bilateral carotid angiogram using JB2 catheter. The procedure was completed with no complication Selective angiogram The aortic arch is a true bovine arch The right carotid system: The right internal carotid artery has intermediate to severe disease appears to be in the range of 70% only The left carotid system: The left internal carotid artery also has intermediate to severe disease appears to be in the range of 70% only Conclusion True bovine arch Moderate to severe carotid atherosclerosis bilaterally appears to be in the range of 60 to 70% Postprocedure management Consider medical treatment and aggressive cholesterol control Consider surveillance carotid duplex study Follow-up with the patient
[2024-04-20] MEDS ORDERED: SODIUM CHLORIDE 0.9% 1,000 ML in EMPTY BAG 1 BAG IV SCH (08:30)
--- NOTE | 2024-04-20 08:43 | IR ---
EXAMINATION TYPE: IR Angio carotid cerv BI LAT DATE OF EXAM: 04/20/2024 COMPARISON: Pre Operative Images if available both CT/MRI or plain film CLINICAL INDICATION: Female, 83 years old with history of possible stenosis; 10.2 min, RT gr perclose TECHNIQUE: IR Angio carotid cerv BI LAT, multiple fluoroscopic images provided for procedure. DAP: 16.9 mGym2 Gycm2 uGym2 cGycm2 or equivalent. FINDINGS: IMPRESSION: 1. Report was generated for administrative purposes only. 2. Please see the operative/procedural note for further details. [facility], , 04/20/2024 8:40 AM
[2024-04-20 11:20] VITALS: RESP 16
[2024-04-20 14:41] VITALS: BP 153/78; PULSE 69
== END 2024-04-20 12:38 | disposition home or self-care (01) ==
LOC: CATHCVL 06:10
PROVIDERS: ATTEND Internal Medicine Interventional Cardiology
DX: I65.23 Occlusion and stenosis of bilateral carotid arteries (principal); I25.10 Atherosclerotic heart disease of native coronary artery without angina pectoris; E78.5 Hyperlipidemia, unspecified
CPT/HCPCS: 36222; C1769 ×3; C1894 ×2; C1760; J1644 ×3; J2003; Q9967